=== PATIENT | male | born 1965 | race Caucasian/White ===

== ENCOUNTER → 2019-07-04 | Outpatient (CLI) | payer OTHER ==
--- NOTE | 2019-07-07 09:52 | KCIC ---
MR of the right elbow HISTORY: Right elbow pain anteriorly. Lifting injury. TECHNIQUE: Routine multiplanar sequences are obtained. FINDINGS: Mild motion degradation. The biceps and brachialis tendons are intact. Triceps tendon is intact. Common flexor tendon is intact. Mild thickening and signal within the proximal ulnar collateral ligament, likely exaggerated by motion degradation although sprain or degeneration is possible. No high-grade tear or rupture is seen however. Common extensor tendon demonstrates mild thickening and heterogeneous signal compatible with tendinosis. No high-grade tear. Lateral collateral ligament complex is intact. Minimal subchondral marrow edema signal at the anterior capitellum, could be degenerative or a small marrow contusion. No aggressive bone destruction. No evidence of acute fracture. Ulnar nerve appears unremarkable. No acute soft tissue abnormality. IMPRESSION: 1. Mild common extensor tendinosis. 2. Mild thickening and signal within the proximal ulnar collateral ligament, may just be due to motion degradation, although a mild sprain or degeneration is possible. 3. Minimal subchondral marrow edema at the anterior capitellum, could be degenerative or small marrow contusion. Electronically signed by: Charly Aranda MD (07/07/2019 9:50 AM) [id number]
== END | disposition home or self-care (01) ==
LOC: KCIC MRI 15:58
PROVIDERS: ATTEND Family Medicine
DX: S56.911A Strain of unspecified muscles, fascia and tendons at forearm level, right arm, initial encounter (principal); M77.8 Other enthesopathies, not elsewhere classified; X50.9XXA Other and unspecified overexertion or strenuous movements or postures, initial encounter; Y93.89 Activity, other specified; Y92.89 Other specified places as the place of occurrence of the external cause; Y99.8 Other external cause status
CPT/HCPCS: 73221